=== PATIENT | male | born 1935 | race African-American/Black ===

== ENCOUNTER 2018-05-10 16:08 | Inpatient (IN) ==
[2018-05-10] MEDS: NOREPINEPHRINE 8 MG in SODIUM CHLORIDE 0.9% 242 ML IV PRN ×2 (18:00→21:17)
[2018-05-10] MEDS ORDERED: ONDANSETRON 4 MG/2 ML VIAL IV PRN (19:02)
[2018-05-10] MEDS ORDERED: SODIUM CHLORIDE 0.9% 1,000 ML IV SCH (19:30)
[2018-05-10 19:44] LABS: Basophils % 0.2 % (0.0-0.8); Hematocrit 28.6 VOL% (42.0-52.0); Mean Corpuscular Volume 88.8 FL (87-102); Monocytes % 4.8 % (1.7-12.7); Red Blood Count 3.22 MC/CUMM (3.8-5.5)
[2018-05-10 19:51] LABS: Hemoglobin 8.3 GM/DL (14.0-18.0); Immature Granulocytes % 9.9 %; Lymphocytes # 0.9 10*3/uL (1.4-4.0); Lymphocytes % 3.5 % (21.2-54.2); Mean Corpuscular Hemoglobin 26 PG (27-34); Mean Platelet Volume 9.7 FL (9.6-12.0); Monocytes # 1.3 10*3/uL (0.11-0.8); NRBC # 0.08 10*3/uL; Neutrophils # 21.6 10*3/uL (1.4-7.4); Neutrophils % 81.6 % (38.7-73.9); Platelet Count 371 T/CUMM (130-400); Red Cell Distribution Width 23.1 % (9.3-17.3); White Blood Count 26.4 T/CUMM (4-12)
[2018-05-10 20:05] LABS: Albumin 1.7 G/DL (3.4-5.0); Bilirubin,Total 0.8 MG/DL (0.2-1.0); Calcium 8.2 MG/DL (8.5-10.1); Osmolality,Calculated 295.8 MOS/KG (273-304); Total Protein 6.3 G/DL (6.4-8.3)
[2018-05-10 20:07] LABS: Troponin I 0.09 NG/ML (0.00-0.045)
[2018-05-10] MEDS ORDERED: INSULIN REGULAR 100 UNIT/ML IV ONE (20:15)
[2018-05-10] MEDS ORDERED: CALCIUM GLUCONATE 1,000 MG in SODIUM CHLORIDE 0.9% 100 ML IV ONE (20:16)
[2018-05-10] MEDS ORDERED: DEXTROSE 50% 25 GM/50 ML VIAL IV ONE (20:16)
[2018-05-10] MEDS ORDERED: DEXTROSE 50% 25 GM/50 ML SYRINGE IV ONE (20:25)
[2018-05-10 20:38] LABS: ABG Base Excess -12.3 MMOL/L (-2.5-2.5); ABG HCO3 14.6 MMOL/L (20-26); ABG Oxygen Saturation 91.5 % (95-100); ABG PCO2 36.8 MM HG (35-48); ABG PO2 82.3 MM HG (80-95); ABG TCO2 14.1 MMOL/L (23-27); Allen Test Positive
[2018-05-10] MEDS ORDERED: ENOXAPARIN 30 MG/0.3 ML SYRINGE SUBCUT SCH (21:00)
[2018-05-10 21:25] LABS: Lymphocytes 5 % (20-55); Nucleated Red Blood Cells 1 (0-5); Segmented Neutrophils 91 % (50-85); Total Cells Counted 100
[2018-05-10 21:27] LABS: Acanthocytes Few; Anisocytosis 1+; Burr Cells 2+
[2018-05-10 21:29] LABS: Polychromasia Slight
[2018-05-10 21:30] LABS: Macrocytosis Slight; Platelet Estimate Normal
[2018-05-10] MEDS ORDERED: SODIUM POLYSTYRENE SULFATE 15 GM/60 ML BOTTLE NG ONE (22:00)
[2018-05-11] MEDS: ALBUTEROL/IPRATROPIUM 3 ML NEB RESP TX SCH ×2 (00:23→07:26)
[2018-05-11] MEDS: NOREPINEPHRINE 8 MG in SODIUM CHLORIDE 0.9% 242 ML IV PRN ×3 (01:47→08:50)
[2018-05-11] MEDS: MORPHINE 4 MG/1 ML VIAL IV PRN ×2 (02:15→07:40)
[2018-05-11] MEDS ORDERED: SODIUM BICARBONATE 50 MEQ/50 ML SYRINGE IV ONE ×3 (02:50→04:10)
[2018-05-11] MEDS ORDERED: FUROSEMIDE 40 MG/4 ML VIAL IV ONE (02:50)
[2018-05-11] MEDS: PHENYLEPHRINE DRIP 40 MG/250 ML PREMIX IV PRN ×2 (03:00→10:21)
[2018-05-11 03:40] LABS: ABG HCO3 16.2 MMOL/L (20-26); ABG Oxygen Saturation 82.6 % (95-100); ABG PCO2 42.9 MM HG (35-48); ABG PH 7.214 (7.35-7.45); ABG PO2 62.5 MM HG (80-95); ABG TCO2 16.4 MMOL/L (23-27); Allen Test Positive
[2018-05-11] MEDS ORDERED: SODIUM BICARBONATE 50 MEQ/50 ML VIAL IV ONE (04:02)
[2018-05-11] MEDS ORDERED: SODIUM BICARB INJ 50 MEQ in SODIUM CHLORIDE 0.45% 1,000 ML IV SCH ×2 (04:30)
[2018-05-11] MEDS ORDERED: VANCOMYCIN INJ 1,000 MG in SODIUM CHLORIDE 0.9% 250 ML IV ONE (05:31)
[2018-05-11 05:36] LABS: Basophils # 0.1 10*3/uL (0.0-0.2); Basophils % 0.2 % (0.0-0.8); Hematocrit 26.4 VOL% (42.0-52.0); Hemoglobin 7.8 GM/DL (14.0-18.0); Immature Granulocytes % 7.3 %; Immature Granulocytes Absolute 2.33 #; Lymphocytes # 1.3 10*3/uL (1.4-4.0); Lymphocytes % 4.2 % (21.2-54.2); Mean Corpuscular HGB Conc 29.5 GM/DL (32-36); Mean Corpuscular Hemoglobin 26 PG (27-34); Mean Corpuscular Volume 88.3 FL (87-102); Mean Platelet Volume 10.3 FL (9.6-12.0); Monocytes # 1.4 10*3/uL (0.11-0.8); Monocytes % 4.2 % (1.7-12.7); NRBC # 0.09 10*3/uL; Neutrophils # 26.8 10*3/uL (1.4-7.4); Neutrophils % 84.1 % (38.7-73.9); Platelet Count 406 T/CUMM (130-400); Red Blood Count 2.99 MC/CUMM (3.8-5.5); Red Cell Distribution Width 23.4 % (9.3-17.3); White Blood Count 31.8 T/CUMM (4-12)
[2018-05-11 05:40] LABS: Band Neutrophils 13 % (0-10); Lymphocytes 9 % (20-55); Segmented Neutrophils 72 % (50-85); Total Cells Counted 100
[2018-05-11 05:41] LABS: Anisocytosis 2+; Platelet Estimate Normal; Poikilocytosis 2+; Polychromasia Slight
[2018-05-11 06:12] LABS: Albumin 1.7 G/DL (3.4-5.0); Bilirubin,Total 1.1 MG/DL (0.2-1.0); Calcium 8.6 MG/DL (8.5-10.1); Osmolality,Calculated 299.6 MOS/KG (273-304); Total Protein 6.5 G/DL (6.4-8.3)
[2018-05-11] MEDS ORDERED: HYDROCORTISONE 100 MG VIAL IV SCH (06:30)
[2018-05-11] MEDS ORDERED: SODIUM POLYSTYRENE SULFATE 15 GM/60 ML BOTTLE NG SCH (06:30)
[2018-05-11 06:38] LABS: Lactic Acid 10.7 MMOL/L (0.4-2.0)
[2018-05-11 06:48] VITALS: BP 87/64
[2018-05-11] MEDS ORDERED: AZTREONAM 2,000 MG in SODIUM CHLORIDE 0.9% 100 ML IV SCH (08:00)
[2018-05-11] MEDS ORDERED: AZTREONAM 2,000 MG in SYRINGE 1 EACH IV SCH (14:00)
[2018-05-12 04:43] LABS: Troponin I 0.124 NG/ML (0.00-0.045)
== END 2018-05-11 10:32 | disposition expired | DRG 302 ==
LOC: N.CC 18:10
PROVIDERS: ADMIT Internal Medicine; ATTEND Internal Medicine